=== PATIENT | male | born 1985 | race Caucasian/White ===

== ENCOUNTER 2017-03-30 10:27 | Day surgery (SDC) | payer OTHER ==
--- NOTE | 2017-03-29 07:53 | HP ---
DATE OF SURGERY: 03/30/2017 ADMISSION DIAGNOSIS: Gallbladder polyps. ANTICIPATED PROCEDURE: Cholecystectomy. HISTORY OF PRESENT ILLNESS: The patient has gallbladder polyp. He was seen and examined. The procedure discussed in detail and wished to proceed. He also has epigastric discomfort. PAST MEDICAL HISTORY: ALLERGIES: CEPHALEXIN. MEDICATIONS: Per the chart. PAST SURGICAL HISTORY: None recent. SOCIAL HISTORY: Negative. FAMILY HISTORY: Negative. REVIEW OF SYSTEMS: Negative. PHYSICAL EXAMINATION: VITAL SIGNS: Normal. CHEST: Clear. COR: Regular. ABDOMEN: No palpable organomegaly or mass. IMPRESSION: Gallbladder polyp. PLAN: Cholecystectomy.
[~2017-03-30 10:27] MED LIST: BRIDION 200MG/2ML IV ONE; DIPRIVAN 200 MG/20 ML IV ONE; Decadron 4 MG INJ IV ONE; Lactated Ringers 1,000 ML IV ONE; Quelicin Fliptop 200 MG/10 ML IJ ONE; SUBLIMAZE 100 MCG/2 ML IV ONE; Sensorcaine 0.25% 10 ML ONE; TORAdol 30 mg Injection IJ ONE; Zemuron 100 MG/10 ML IJ ONE; Zofran 4 MG/2 ML VIAL IV ONE
[2017-03-30] MEDS ORDERED: CLINDAMYCIN-D5W 900 MG/50 ML*** 900 MG/50 ML BAG IV STA (10:40)
[2017-03-30] MEDS ORDERED: Levofloxacin 500MG/100ML D5W 500 MG/100 ML BAG IV ONE ×2 (10:43→10:51)
[2017-03-30] MEDS ORDERED: Lactated Ringers 1,000 ML IV ONE (10:51)
[2017-03-30] MEDS ORDERED: Lactated Ringers 1,000 ML IV SCH (11:00)
[2017-03-30] MEDS ORDERED: DILAUDID 2 MG INJECTION ONE (13:11)
[2017-03-30] MEDS ORDERED: SUBLIMAZE 100 MCG/2 ML ONE (13:23)
[2017-03-30] MEDS ORDERED: Zofran 4 MG/2 ML VIAL ONE (13:35)
[2017-03-30 14:39] VITALS: O2SAT 96
[2017-03-30 15:15] VITALS: BP 145/91; PULSE 86
--- NOTE | 2017-03-31 07:40 | OP ---
SURGERY DATE/TIME: 03/30/2017 1225 PREOPERATIVE DIAGNOSIS: Gallbladder polyp. POSTOPERATIVE DIAGNOSIS: Cholesterolosis. PROCEDURE: Laparoscopic cholecystectomy. SURGEON: Dr. Gibbons. ANESTHESIA: General endotracheal tube. COMPLICATIONS: None. CONDITION: Stable. INDICATIONS: A patient with upper abdominal pain. Ultrasound revealing a polyp. Procedure discussed in detail and wished to proceed. Taken to surgery. DESCRIPTION OF PROCEDURE AND FINDINGS: General anesthetic, routine prep and drape. 4/5 ports. Good visualization. Cystic duct defined. Cystic artery defined. Both structures triply clipped and transected. Clips noted across well approximated. Gallbladder rolled out of gallbladder fossa. Gallbladder delivered through the upper abdominal port with slight widening. Hole closure device was used. CO2 ex-sufflated. Field was dry. Skin closed with 4-0 Vicryl and Steri-Strips. The patient tolerated the procedure satisfactorily.
== END 2017-03-30 15:15 | disposition home or self-care (01) ==
LOC: SDC 10:27 → EDBD 10:27 → SDC 15:15
PROVIDERS: ATTEND Surgery
PROC: 0FT44ZZ Resection of Gallbladder, Percutaneous Endoscopic Approach (ICD-10-PCS; principal; 2017-03-30)
DX: K82.4 Cholesterolosis of gallbladder (principal)
CPT/HCPCS: 00790; 36415; 88304; J0330; J1100; J1170; J1885; J1956; J2405; J2704; J3010